=== PATIENT | male | born 1980 | race Caucasian/White ===

== ENCOUNTER 2025-01-10 15:34 | Emergency (ER) | payer OTHER ==
[2025-01-10 15:50] VITALS: TEMP 97.8
--- NOTE | 2025-01-10 16:10 | ED ---
General Adult HPI - General Chief complaint: Abdominal Pain Stated complaint: abd pain, post op Time Seen by Provider: 01/10/25 15:52 Source: patient Mode of arrival: ambulatory Limitations: no limitations - History of Present Illness Initial comments: Dictation was produced using [employer] dictation software. please excuse any grammatical, word or spelling errors. Chief Complaint: 44-year-old male with abdominal pain History of Present Illness: Patient is a 44-year-old male presents emergency department abdominal pain. Patient extensive abdominal surgical history. 7 years ago suffered from acute diverticulitis which ended up being complicated re quiring colostomy's. Patient has had multiple surgeries for hernia and bowel obstructions. States that for the last 2 days she has had worsening abdominal pain. Earlier this year patient had lysis of adhesions and hernia repair with mesh placement performed at [facility]. Patient complaining of poor appetite. Denies any fever, chills or night sweats. The ROS documented in this emergency department record has been reviewed and confirmed by me. Those systems with pertinent positive or negative responses have been documented in the HPI. All other systems are other negative and/or noncontributory. - Related Data Previous Rx's Medication Instructions Recorded clindamycin HCL [Cleocin] 300 mg PO Q8H 7 Days #21 cap 01/10/25 oxyCODONE-APAP 10-325MG [Percocet 1 tab PO Q4HR PRN 3 Days #18 tab 01/10/25 10-325 mg] Allergies Allergy/AdvReac Type Severity Reaction Status Date / Time No Known Allergies Allergy Verified 01/10/25 15:50 Review of Systems ROS Statement: Those systems with pertinent positive or pertinent negative responses have been documented in the HPI. ROS Other: All systems not noted in ROS Statement are negative. Past Medical History Additional Past Medical History / Comment(s): diverticulitis Additional Past Surgical History / Comment(s): hernia, colonoscopy, colostomy, colostomy reversal. Smoking Status: Current some day smoker Past Alcohol Use History: Occasional Past Drug Use History: Marijuana General Exam - General Exam Comments Initial Comments: PHYSICAL EXAM: General Impression: Alert and oriented x3, not in acute distress HEENT: Normocephalic atraumatic, extra-ocular movements intact, pupils equal and reactive to light bilaterally, mucous membranes moist. Cardiovascular: Heart regular rate and rhythm Chest: Able to complete full sentences, no retractions, no tachypnea Abdomen: abdomen soft, right lower abdominal tenderness, multiple abdominal scars, non-distended, no organomegaly Musculoskeletal: Pulses present and equal in all extremities, no peripheral edema Motor: no focal deficits noted Neurological: CN II-XII grossly intact, no focal motor or sensory deficits noted Skin: Intact with no visualized rashes Psych: Normal affect and mood Limitations: no limitations Course Vital Signs 01/10/25 01/10/25 15:46 17:33 Temperature 97.8 F Pulse Rate 102 H 88 Respiratory 17 18 Rate Blood Pressure 143/109 168/101 O2 Sat by Pulse 99 95 Oximetry Medical Decision Making - Medical Decision Making Was pt. sent in by a medical professional or institution (, PA, CLINICAL LAB CLERK, urgent care, hospital, or usp...) When possible be specific @ -No Did you speak to anyone other than the patient for history (EMS, parent, family, police, friend...)? What history was obtained from this source @ -No Did you review nursing and triage notes (agree or disagree)? Why? @ -I reviewed and agree with nursing and triage notes Were old charts reviewed (outside hosp., previous admission, EMS record, old EKG, old radiological studies, urgent care reports/EKG's, usp records)? Report findings @ -No old charts were reviewed Differential Diagnosis (chest pain, altered mental status, abdominal pain women, abdominal pain men, vaginal bleeding, musculoskeletal, weakness, fever, dyspnea, syncope, headache, dizziness, GI bleed, back pain, seizure, CVA, palpatations, mental health)? @ -Differential Abdominal Pain Men: Appendicitis, cholecystitis, diverticulosis, ischemic bowel, pancreatitis, hepatitis, UTI, gastroenteritis, AAA, incarcerated hernia, bowel obstruction, constipation, inflammatory bowel, hepatitis, peptic ulcer disease, splenic infarction, perforated viscus, testicular torsion, this is not meant to be an all-inclusive list EKG interpreted by me (3pts min.). @ -None done X-rays interpreted by me (1pt min.). @ -None done CT interpreted by me (1pt min.). @ -CT abdomen pelvis shows anterior abdominal wall fluid collection which is seroma versus abscess U/S interpreted by me (1pt. min.). @ -None done What testing was considered but not performed or refused? (CT, X-rays, U/S, lab s)? Why? @ -None What meds were considered but not given or refused? Why? @ -None Was smoking cessation discussed for >3mins.? @ -No Were there social determinants of health that impacted care today? How? (Homelessness, low income, unemployed, alcoholism, drug addiction, transportation, low edu. Level, literacy, decrease access to med. care, residential, rehab)? @ -No Was there de-escalation of care discussed even if they declined (Discuss DNR or withdrawal of care, Hospice)? DNR status @ -No What co-morbidities impacted this encounter? (DM, HTN, Smoking, COPD, CAD, Cancer, CVA, ARF, Chemo, Hep., AIDS, mental health diagnosis, sleep apnea, morbid obesity)? @ -Extensive abdominal surgical history Was patient admitted / discharged? Hospital course, mention meds given and route, prescriptions, significant lab abnormalities, going to OR and other pertinent info. @ -44-year-old male with extensive abdominal surgical history presents to the ER for worsening abdominal pain. Vital signs upon arrival are within acceptable limits. Laboratory evaluation obtained. Leukocytosis 16.8. Rest of labs within acceptable limits. CT abdomen pelvis shows anterior abdominal wall fluid collection concerning for abscess versus seroma. Discussed with patient and recommend that he be transferred for concerns of infection. States that he would rather be discharged follow-up with his general surgeon Dr. Alvarez as soon as possible. Believe this is reasonable disposition given that patient is well-appearing and has good social system with good follow-up. Patient given a dose of antibiotics. Prescription sent for antibiotics and analgesics. Patient given strict return precautions. Did you discuss the management of the patient with other professionals (professionals i.e. , PA, CLINICAL LAB CLERK, lab, RT, psych nurse, social work supervisor, operations systems specialist, teacher, information systems security officer, trimming caser)? Give summary @ -No Was critical care preformed (if so, how long)? @ -No Undiagnosed new problem with uncertain prognosis? @ -No Drug Therapy requiring intensive monitoring for toxicity (Heparin, Nitro, Insulin, Cardizem)? @ -No Were any procedures done? @ -No Diagnosis/symptom? Acute, or Chronic, or Acute on Chronic? Uncomplicated (without systemic symptoms) or Complicated (systemic symptoms)? @ -Abdominal wall fluid collection Side effects of treatment? @ -No Exacerbation, Progression, or Severe Exacerbation? @ -No Poses a threat to life or bodily function? How? (Chest pain, USA, SD, pneumonia, PE, COPD, DKA, ARF, appy, cholecystitis, CVA, Diverticulitis, Homicidal, Suicidal, threat to staff... and all critical care pts) @ -yes - Lab Data Result diagrams: 01/10/25 16:17 01/10/25 16:17 Lab Results 01/10/25 01/10/25 01/10/25 Range/Units 16:17 16:17 18:19 WBC 16.85 H (4.50-10.00) 10*3/uL RBC 5.78 H (4.40-5.60) 10*6/uL Hgb 17.8 H (13.0-17.0) g/dL Hct 51.3 H (39.6-50.0) % MCV 88.8 (80.0-97.0) fL MCH 30.8 (27.0-32.0) pg MCHC 34.7 (32.0-37.0) g/dL Plt Count 367 (140-440) 10*3/uL MPV 9.5 (9.5-12.2) fL Immature Gran % (Auto) 0.5 % Neutrophils % 59.2 % Lymphocytes % 28.6 % Monocytes % 8.4 % Eosinophils % 2.6 % Basophils % 0.7 % Immature Gran # 0.08 H (0.00-0.04) 10*3/uL Neutrophils # 9.99 H (1.80-7.70) 10*3/uL Lymphocytes # 4.82 (0.90-5.00) 10*3/uL Monocytes # 1.41 H (0.20-1.00) 10*3/uL Eosinophils # 0.44 H (0.04-0.35) 10*3/uL Basophils # 0.11 H (0.00-0.10) 10*3/uL Sodium 136 L (137-145) mmol/L Potassium 4.2 (3.5-5.1) mmol/L Chloride 99 (98-107) mmol/L Carbon Dioxide 20 L (22-30) mmol/L Anion Gap 17 mmol/L BUN 30 H (9-20) mg/dL Creatinine 1.27 H (0.66-1.25) mg/dL Est GFR (CKD-EPI)AfAm 80 (>60 ml/min/1.73 sqM) Est GFR (CKD-EPI)NonAf 69 (>60 ml/min/1.73 sqM) Glucose 92 (74-99) mg/dL Calcium 10.5 H (8.4-10.2) mg/dL Total Bilirubin 0.9 (0.2-1.3) mg/dL AST 40 (17-59) U/L ALT 55 H (4-49) U/L Alkaline Phosphatase 120 (38-126) U/L Total Protein 9.5 H (6.3-8.2) g/dL Albumin 5.3 H (3.5-5.0) g/dL Lipase 308 H (23-300) U/L Urine Color Yellow Urine Appearance Cloudy (Clear) Urine pH 6.0 (5.0-8.0) Ur Specific [place] >1.050 H (1.001-1.035) Urine Protein 2+ H (Negative) Urine Glucose (UA) Negative (Negative) Urine Ketones Negative (Negative) Urine Blood Negative (Negative) Urine Nitrite Negative (Negative) Urine Bilirubin Negative (Negative) Urine Urobilinogen <2.0 (<2.0) mg/dL Ur Leukocyte Esterase Negative (Negative) Urine RBC 20 H (0-5) /hpf Urine WBC 3 (0-5) /hpf Ur Squamous Epith Cells 1 (0-4) /hpf Urine Bacteria Rare H (None) /hpf Urine Mucus Few H (None) /hpf Disposition Clinical Impression: Abdominal wall seroma Disposition: HOME SELF-CARE Condition: Fair Instructions (If sedation given, give patient instructions): Abscess Follow-up (ED) Additional Instructions: follow up with Dr. Alvarez Prescriptions: clindamycin HCL [Cleocin] 300 mg PO Q8H 7 Days #21 cap oxyCODONE-APAP 10-325MG [Percocet 10-325 mg] 1 tab PO Q4HR PRN 3 Days #18 tab PRN Reason: Pain Is patient prescribed a controlled substance at d/c from ED?: Yes If prescribed controlled substance>3 days was MAPS reviewed?: Prescribed <3 Days Referrals: None,Stated [Primary Care Provider] - 1-2 days Time of Disposition: 19:01
[2025-01-10] MEDS: HYDROmorphone 1 MG/ML 1 ML SYRINGE IVP STA ×2 (16:18→18:21)
[2025-01-10 16:35] LABS: Basophils # (A) 0.11 10*3/uL (0.00-0.10); Basophils % (A) 0.7 %; Eosinophils # (A) 0.44 10*3/uL (0.04-0.35); Eosinophils % (A) 2.6 %; HCT 51.3 % (39.6-50.0); HGB 17.8 g/dL (13.0-17.0); Lymphocytes # (A) 4.82 10*3/uL (0.90-5.00); Lymphocytes % (A) 28.6 %; MCH 30.8 pg (27.0-32.0); MCHC 34.7 g/dL (32.0-37.0); MCV 88.8 fL (80.0-97.0); Mean Platelet Volume 9.5 fL (9.5-12.2); Monocytes # (A) 1.41 10*3/uL (0.20-1.00); Monocytes % (A) 8.4 %; Neutrophils # (A) 9.99 10*3/uL (1.80-7.70); Neutrophils % (A) 59.2 %; Platelet Count 367 10*3/uL (140-440); RBC 5.78 10*6/uL (4.40-5.60); RDW 13.4 % (11.5-14.5); WBC 16.85 10*3/uL (4.50-10.00)
[2025-01-10 16:50] LABS: ALT 55 U/L (4-49); AST 40 U/L (17-59); African American GFR (CKD) 80 (>60 ml/min/1.73 sqM); Albumin 5.3 g/dL (3.5-5.0); Alkaline Phosphatase 120 U/L (38-126); Anion Gap 17 mmol/L; Blood Urea Nitrogen 30 mg/dL (9-20); Calcium 10.5 mg/dL (8.4-10.2); Carbon Dioxide 20 mmol/L (22-30); Chloride 99 mmol/L (98-107); Glucose 92 mg/dL (74-99); Lipase 308 U/L (23-300); Non-African American GFR(CKD) 69 (>60 ml/min/1.73 sqM); Potassium 4.2 mmol/L (3.5-5.1); Sodium 136 mmol/L (137-145); Total Bilirubin 0.9 mg/dL (0.2-1.3); Total Protein 9.5 g/dL (6.3-8.2)
[2025-01-10] MEDS: SODIUM CHLORIDE 0.9% 1,000 ML IV STA (17:32)
[2025-01-10 17:34] VITALS: RESP 18
--- NOTE | 2025-01-10 18:29 | CT ---
EXAMINATION TYPE: CT abdomen pelvis w con DATE OF EXAM: 01/10/2025 5:10 PM COMPARISON: None. CLINICAL INDICATION: Male, 44 years old with history of abdominal pain; diverticulitis and abdominal pain post graph surgery TECHNIQUE: Axial CT abdomen pelvis w con;Sagittal and coronal reformats were created on a separate w orkstation. Contrast used:100 mL of Isovue 300 with IV Contrast, Oral contrast used: without Oral Contrast CT DLP: 1238.4 mGycm, Automated exposure control for dose reduction was used. FINDINGS: LOWER CHEST: Unremarkable ABDOMEN LIVER: Diffusely hypoattenuating parenchyma. GALLBLADDER AND BILE DUCTS: Unremarkable. PANCREAS: Unremarkable. SPLEEN: Unremarkable. ADRENAL GLANDS: Unremarkable. KIDNEYS AND URETERS: Numerous bilateral renal cysts suggestive of polycystic kidney disease. Some of these cystic lesions demonstrate peripheral calcification. Symmetric enhancement of the kidneys bilat erally. There is retroaortic left renal vein. No hydronephrosis or ureter. PELVIS BLADDER: No evidence for wall thickening or mass given limitations of exam. REPRODUCTIVE: Unremarkable. ABDOMEN & PELVIS STOMACH AND BOWEL: Stomach and duodenum are unremarkable. Scattered diverticula are noted throughout the colon. Previous sigmoidectomy noted. No evidence of bowel obstruction. PERITONEUM/RETROPERITONEUM: No evidence of pneumoperitoneum or free fluid. VASCULATURE: No evidence of aortic aneurysm. MUSCULOSKELETAL: No acute osseous abnormalities LYMPH NODES: No gross evidence for lymphadenopathy. SOFT TISSUE/ABDOMINAL WALL: Peripherally thick-walled/enhancing fluid collection involving the anteri or abdominal wall measuring 8.2 x 3.5 cm (image 59/109). No gas within this fluid collection. There i s however fat within the fluid collection. IMPRESSION: Peripherally thick-walled fluid and fat density collection involving the anterior abdominal wall jennifer uring 8.2 x 3.5 cm, felt to most likely reflect a postoperative seroma. Developing abscess would be c onsidered less likely but difficult to exclude. No gas within the fluid collection. [facility], , 01/10/2025 6:27 PM
[2025-01-10 19:00] LABS: Appearance,Urine Cloudy (Clear); Bacteria,Urine Rare /hpf; Bilirubin,Urine Negative (Negative); Blood,Urine Negative (Negative); Color,Urine Yellow; Glucose,Urine (UA) Negative (Negative); Ketones,Urine Negative (Negative); Leukocyte Esterase,Urine Negative (Negative); Mucus,Urine Few /hpf; Nitrite,Urine Negative (Negative); Protein,Urine 2+ (Negative); RBC,Urine 20 /hpf (0-5); Squamous Epithelial Cell,Urine 1 /hpf (0-4); Urobilinogen,Urine <2.0 mg/dL (<2.0); WBC,Urine 3 /hpf (0-5)
[2025-01-10 19:01] LABS: Specific Gravity,Urine >1.050 (1.001-1.035)
[2025-01-10] MEDS: CLINDAMYCIN 300 MG in DEXTROSE 5% IN WATER 50 ML IVPB STA (19:28)
[2025-01-10 19:39] VITALS: BP 163/116; PULSE 89
== END 2025-01-10 19:39 | disposition home or self-care (01) ==
LOC: EC 15:34
DX: L76.34 Postprocedural seroma of skin and subcutaneous tissue following other procedure (principal); F17.200 Nicotine dependence, unspecified, uncomplicated
CPT/HCPCS: 36415; 80053; 83690; 85025; 81001; 74177; 99284; 96374; 96375; 96376; 96361 ×2; J1171; Q9967; J0736